=== PATIENT | male | born 1980 | race Caucasian/White ===

== ENCOUNTER 2024-10-17 18:38 | Emergency (ER) | payer MEDICARE, MEDICAID, SELFPAY ==
--- NOTE | ~2024-10-17 | CT_ITS ---
CLINICAL INDICATION: Hematuria and suprapubic pain. History of NF1. COMPARISON: None. TECHNIQUE: Multiple contiguous axial images of the abdomen and pelvis were performed without the admi nistration of intravenous contrast The dose-length product (DLP) was 198.93 mGy-cm. Automated exposure control and iterative reconstruction technique were employed. FINDINGS/OBSERVATIONS: Visualized lower thorax: Severe panlobular emphysematous disease is detected. Bibasilar bullous formation is noted, left greater than right. Elevation of the left hemidiaphragm with adjacent compressive consolidation and varicose bronchiectas is, likely chronic. The heart is of normal size, without pericardial effusion. Liver: The liver demonstrates homogeneous attenuation and is not enlarged. Gallbladder and biliary system: The gallbladder is only minimally distended, and otherwise unremarkable. Pancreas: Limited evaluation of the pancreas secondary to the lack of intravenous contrast. Spleen: The spleen demonstrates homogeneous attenuation and is not enlarged. Kidneys: The bilateral kidneys are unremarkable, without hydronephrosis or renal calculi. Adrenal glands: Unremarkable. Gastrointestinal tract: Trace fecal stasis within the colon. Appendix: The air-filled appendix is of normal caliber (axial series, images 111 through 140) Vasculature: Evidence of endovascular venous reconstruction. Lymph nodes: Limited evaluation without intravenous contrast. Pelvic structures: The bladder is only minimally distended, and otherwise unremarkable. Heterogeneous attenuation within the base of the bladder, as well as the prostate gland, consistent w [facility] patient's history. The prostate gland is not enlarged. Body wall and musculoskeletal: No significant degenerative disease within the lower thoracic or lumbosacral spine. IMPRESSION: No obstructive uropathy. Heterogeneous attenuation within the base of the bladder as well as within the prostate gland along t he expected course of the prostatic urethra, consistent with patient's history. Reviewed, dictated and finalized at location A. IMPRESSION: No obstructive uropathy. Heterogeneous attenuation within the base of the bladder as well as within the prostate gland along the expected course of the prostatic urethra, consistent w [facility] patient's history.
--- OUTSIDE RECORDS SUMMARY | 2024-10-17 18:39 | XMS_ITS | Clinical Summary ---
Author Organization [facility] Address [address] [place] [address] Phone Care Team Providers Care Mortgage Lender Name Role Phone Unavailable Primary Care Provider Unavailabl e Allergies Active Allergy Reactions Criticality Noted Date Comments Amoxicillin Rash 11/07/2016 Medications cyclobenzaprine (FLEXERIL) 10 MG Tablet 10/28/2016 Active traZODone (DESYREL) 50 MG Tablet TK 2 TS PO QD HS 0 10/28/2016 Active amLODIPine (NORVASC) 2.5 MG Tablet 1 Tab daily. 90 Tab 11/07/2016 Active metoprolol tartrate (LOPRESSOR) 50 MG Tablet 1 Tab 2 times daily. 180 Tab 11/07/2016 Active enoxaparin (LOVENOX) 80 MG/0.8ML Solution every 12 hours. 11/07/2016 Active Active Problems Problem Noted Date Diagnosed Date Hypertension Neurofibromatosis, peripheral, NF1 Family History Medical History Relation Name Comments No Known Problems Father No Known Problems Mother Relation Name Status Comments Father Alive Mother Alive Social History Tobacco Use Types Packs/Day Years Used Date Smoking Tobacco: Former Smokeless Tobacco: Never Tobacco Cessation:Counseling Given: No Alcohol Use Standard Drinks/Week Comments No 0 (1 standard drink = 0.6 oz pur e alcohol) Sexually Active Control Partners Comments Never Sex and Gender Information Value Date Recorded Sex Assigned at Not on file Legal Sex Male 9:49 PM CDT Gender Identity Not on file Sexual Orientation Not on file Last Filed Vital Signs Vital Sign Reading Time Taken Comments Blood Pressure 124/70 11/07/2016 3:19 PM CDT Pulse 103 11/07/2016 3:19 PM CDT Temperature 36.7 C (98 F) 11/07/2016 3:19 PM CDT Respiratory Rate 20 11/07/2016 3:19 PM CDT Oxygen Saturation 96% 11/07/2016 3:19 PM CDT Inhaled Oxygen Concentration - - Weight 69.9 kg (154 lb 3.2 oz) 11/07/2016 3:19 P M CDT Height 179.1 cm (5' 10.5) 11/07/2016 3:19 PM CD T Body Mass Index 21.81 11/07/2016 3:19 PM CDT Plan of Treatment Health Maintenance Due Date Last Done Comments Hepatitis C Virus (HCV) Screening 1981 TdaP Immunization 1981 Hepatitis B Immunization (1 of 3 - 19+ 3-dose series) 2000 Influenza Immunization (#1) 2023 SARS-COV-2 Immunization ( season) 2023 Respiratory Syncytial Virus (RSV) Immunization (Adult) (1 - 1-dose 75+ series) 2056 Meningococcal Immunization (ACWY) Aged Out No longer eligible based on patient's age to complete this topic Pneumococcal Immunization Combined Aged Out No longer eligible based on patient's age to complete this topic Rotavirus Immunization Aged Out No lo nger eligible based on patient's age to complete this topic Care Teams Mortgage Lender Relationship Specialty Start Date End Date Linda Bragg MD Consulting Physician Oncology 11/07/16
[2024-10-17 18:40] VITALS: BP 121/79; PULSE 96; RESP 20; TEMP 36.6; O2SAT 95
--- OUTSIDE RECORDS SUMMARY | 2024-10-17 18:40 | XMS_ITS | Data Portability ---
Author Organization [facility] Address [address] [place] [address] Assessment No assessment recorded. Plan of Treatment Reminders Order Date Submit Date Provider Last Modified By Organization Details Last Modified Time Details Appointments None recorded. Lab None recorded. Referral None recorded. Procedures None recorded. Surgeries None recorded. Imaging None recorded. Medication Orders cyclobenza ching 10 mg tablet 2016 017 [id number], [address] , [place], [place], [id number], 7 12:02:56 trazodone 50 mg tablet 2016 017 [facility] #[id number], [address] , [place], [place], [id number], 7 12:03:51 Patient TargetsNo targets recorded. Patient Instructions Encounter Date Encounter Id Patient Instructions Last Modified By Organization Details Last Modified Time 10/28/2016 [id number] A healthy lifestyle: care instructions [email or web address] Not available 10/28/2016 12:23:11 Reason for Referral None Reported. Problems Name Problem SNOMED Code Status Onset Date Resolution Date Notes Provider Name and Address Organization Details Recorded Time Pulmonary embolism 79734113 Active 017 SANDEEP Oliveros, [place] - [facility] 7 11:35:54 Problem Notes None recorded. Medical Equipment None Reported. Allergies Allergen ID Allergen Name Allergen Category Reaction Reaction Severity Criticality Documentation Date Start Date Code Code System Note Provider Name and Address Organization Details Recorded Time 49315 amoxicill in medicatio n Not available Not available Not available 10/28/2016 723 [facility] Geeta English CMA null, [place] - [facility] 7 11:35:39 Medications Name Sig Start Date Stop Date Status Note LastModified by Organization Details LastModified Time cyclobenzapr ine 10 mg tablet Take 1 tablet every day by oral route as needed for 30 days. active Not Available Not Available No t Available nystatin 100,000 unit/mL oral suspension active Not Available Not Available N ot Available trazodone 50 mg tablet TAKE 2 TABLETS BY MOUTH EVERY DAY AT BEDTIME 2017 active Not Available Not Available Not Avai lable Lidocaine Viscous 2 % mucosal solution active Not Available Not Available Not Available amlodipine 2.5 mg tablet 1 tablet daily active Not Available Not Available No t Available metoprolol tartrate 50 mg tablet 1 tablet BID active Not Available Not Available No t Available oxycodone 5 mg tablet 10/28 completed Not Available Not Available Not Available enoxaparin 60 mg/0.6 mL subcutaneous syringe 10/28 completed Not Available Not Available Not Available enoxaparin 80 mg/0.8 mL subcutaneous syringe BID active Not Available Not Available Not Available enoxaparin 120 mg/0.8 mL subcutaneous syringe 10/28 completed Not Available Not Available Not Available Senexon-S 8.6 mg-50 mg tablet 10/28 completed Not Available Not Available Not Available Vitals Date Recorded Body height Body mass index (BMI) Body weight Oxygen saturation Oxygen saturation in Arterial blood by Pulse oximetry Heart rate Body temperature Systolic blood pressure Diastolic blood pressure Provider Name and Address Organization Details Last Updated DateTime 7 4693.92 cm 0 kg/m2 2551.46 g 96 % 96 % 119 /min 98.9 [degF] 124 mm[Hg] 86 mm[Hg] Geeta English CMA [place] - [facility] 7 11:40:16 Social History Question Answer Notes LastModified by Organizat ion Details LastModified Time Tobacco Smoking Status Former Smoker still vapes SANDEEP Oliveros [place] - [facility] 10/28/2016 11:37:06 Do You Have An Advance Directive? No Information not available 10/28/2016 What Is Your Level Of Caffeine Consumption? Heavy Information not available 10/28/2016 How Much Tobacco Do You Chew? None Information not available 10/28/2016 What Type Of Diet Are You Following? REGULAR Information not available 10/28/2016 Which Illicit Or Recreational Drugs Have You Used? None Information not available 10/28/2016 Hard Of Hearing Or Deaf In One Or Both Ears? No Information not available 10/28/2016 Legally Blind In One Or Both Eyes? No Information no t available 10/28/2016 Are You Sexually Active? No Information not available 10/28/2016 How Much Tobacco Do You Smoke? 1 PPD Information not available 10/28/2016 General Stress Level Low Information not available 10/28/2016 Do You Use Sunscreen Routinely? No Information not available 10/28/2016 How Many Years Have You Smoked Tobacco? 10 Information not available 10/28/2016 Sex: Unknown Functional Status Question Answer Note LastModified by Organizat ion Details LastModified Time What is your level of alcohol consumption? None Information not available 10/28/2016 Are you currently employed? No Information not available 10/28/2016 What is your exercise level? Occasional Information not available 10/28/2016 Mental Status None recorded. Family History Nothing Reported. Medical History Condition Response Coronary Artery Disease N Other N High Blood Pressure Y Atrial Fibrillation N Kidney or Bladder Problems N Thyroid Problems N GI Problems N Depression N COPD N Blood Clots Y Skin Problems N Anemia N Heart Attack ([place]) N Anxiety Disorder N Diabetes N Muscle, Joint, or Bone Problems N Seizures/Epilepsy N Acid Reflux (GERD) N Cancer Y Stroke N Asthma N Allergies N High Cholesterol N Hepatitis N Liver Disease N Headaches N Heart Failure N Osteoporosis N Past Encounters Encounter ID Performer Location Encounter Start Date Encounter Closed Date Diagnosis/Indication Diagnosis SNOMED-CT Code Diagnosis ICD10 Code Diagnosis Note [id number] ANA Evangelista NP [facility] [address] [place] [address] 10/28/2016 11:27:10 10/28/2016 12:20:12 Neck pain 01188653 M54.2 Start flexeril as directed. Tylenol, rest, ice. F/u if symptoms persist/wo rsen Insomnia 303675537 G47.0 0 Increase trazodone to 100 mg po HS. F/u 1 month or sooner if needed. Health Concerns Section Related Observation LastModified by Organization Detai ls LastModified Time None Recorded Concern Status LastModified by Organization Details LastModified Time None Recorded Advance Directives Directive N: Payers Insurance Date Sequence Insurance Name Policy Number Policy Alejandro Covered Member ID Alejandro Member ID Guarantor Name 01/24/2017 1 [facility] (MEDICAID HMO) [id number] Levon Wang [id number] Levon Wang Notes Date Note Type Note Provider Name and Address Organization Details Recorded Time 10/28/2016 text/html Patient presents today to establish care. States he was in the hospital recently for a blood clot in his lungs. He has a hx of blood clotting disorder and was prescribed lovenox. He ran out of the lovenox and did not take it. That is when the blood clot developed. He was seen at [facility] when the blood clot occurred. He is back on his lovenox that is being managed by [facility] specialist. He is not to go off of it according to the patient. He is feeling very good today. Denies CP, SOB. He has an implanted port in his right upper chest wall. 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 Cancerous area was surgically removed- scars visible. He reports this area is always very tight and painful. States he has taken muscle relaxers int he past that help with this pain. He would like ar refill today. He currently takes trazadone for sleeping. Reports the 50 mg is not helping as much any more, wondering if he can take 100 mg po HS. ANA Evangelista NP Attn: Accounting,[address] [facility], [place], [address], [facility] 11/04/2016 14:42:31
--- OUTSIDE RECORDS SUMMARY | 2024-10-17 19:09 | XMS_ITS | Clinical Summary ---
Author Organization [facility] field Address [address] [place] [address] Phone Care Team Providers Care Mercerizer Name Role Phone Unavailable Primary Care Provider Unavailabl e Encounters Date Type Department Care Team Description 10/01/2024 External Device Data [facility] ABSTRACTION Provider, Abstract 09/03/2024 External Device Data [facility] ABSTRACTION Provider, Abstract 07/30/2024 External Device Data [facility] ABSTRACTION Provider, Abstract from Last 3 Months Social History Tobacco Use Types Packs/Day Years Used Date Smoking Tobacco: Never Assessed Sex and Gender Information Value Date Recorded Sex Assigned at Not on file 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
--- OUTSIDE RECORDS SUMMARY | 2024-10-17 19:09 | XMS_ITS | Clinical Summary ---
Author Organization [facility] Address [address] [place] [address] Phone Care Team Providers Care Preschool Teacher Name Role Phone Unavailable Primary Care Provider [...] age to complete this topic Care Teams Preschool Teacher Relationship Specialty Start Date End Date Linda Bragg MD Consulting Physician Oncology 11/07/16
--- OUTSIDE RECORDS SUMMARY | 2024-10-17 19:09 | XMS_ITS | Patient Health Record ---
Author Organization [facility] Address [address], [place] [id number] Care Team Providers Care Radio Electronics Officer Name Role Phone Sandra Gonsalez Primary Care Provider Blessing Betancourt Unavailable [phone] Gena Hou Unavailable [phone] Antwan Escalante Unavailable [phone] Allergies Allergen (clinical drug ingredient) Drug/Non Drug Allergy documented on EMR Reaction Allergy Type Onset Date Status amoxicillin Amoxicillin rash Drug Allergy Act nicho Substance with sulfonamide structure and antibacterial mechanism of action (substance) Sulfa Antibiotics vomiting Drug Allergy Active Results Component Value Reference Range Notes Hemoglobin A1c *[facility]* Reviewed date:12/22/2023 11:20:11 AM Interpretation:5.1 Performing Lab: Notes/Report: 5.1 HEMOGLOBIN A1C 5.1 TSH+Free T4 *[facility]* Reviewed date:12/22/2023 11:20:11 AM Interpretation: Performing Lab:[facility] [address], Phone - [phone], Director - Harsha Notes/Report: TSH 2.480 0.450-4.500 uIU/mL T4,Free(Direct) 1.33 0.82-1.77 ng/dL Vitamin D, 25-Hydroxy *[facility]* Reviewed date:12/22/2023 11:20:11 AM Interpretation: Performing Lab:[facility] [address], Phone - [phone], Director - Harsha Notes/Report: Vitamin D, 25-Hydroxy 19.6 30.0-100.0 ng/mL Vitamin D deficiency has been defined by the [place] [employer] and an Endocrine Society practice guideline as a level of serum 25-OH vitamin D less than 20 ng/mL (1,2). The Endocrine Society went on to further define vitamin D insufficiency as a level between 21 and 29 ng/mL (2). 1. IOM ([place] [employer]). 2010. Dietary reference intakes for calcium and D. [place]: The National Academies Press. 2. Zoey MF, Nafisa AGGARWAL, Lissett NEAL, et al. Evaluation, treatment, and prevention of vitamin D deficiency: an Endocrine Society clinical practice guideline. JCEM. 2010; 96(7):1911-30. CBC With Differential/Platel et Reviewed date:12/22/2023 11:20:11 AM Interpretation: Performing Lab:[facility], Notes/Report: Comp. Metabolic Panel (14) Reviewed date:12/22/2023 11:20:11 AM Interpretation: Performing Lab:[facility], Notes/Report: CBC With Differential/Platel et Reviewed date:08/15/2024 08:17:12 AM Interpretation: Performing Lab:[facility], Notes/Report: Comp. Metabolic Panel (14) Reviewed date:08/15/2024 08:17:12 AM Interpretation: Performing Lab:[facility], Notes/Report: X ray : Chest with 2 views Reviewed date:09/06/2024 10:18:40 AM Interpretation: Performing Lab: Notes/Report: Influenza A/B *[facility]* Reviewed date:05/08/2024 12:59:13 PM Interpretation:Negative Performing Lab: Notes/Report: Negative INFLUENZA A Negative INFLUENZA B Negative COVID-19 rapid, Ag Reviewed date:05/08/2024 12:59:13 PM Interpretation:Negative Performing Lab: Notes/Report: Negative Covid-19 Negative Negative - X ray : Chest (PA lateral) Reviewed date:05/13/2024 11:00:24 AM Interpretation:normal Performing Lab: Notes/Report: normal CBC With Differential/Platel et Reviewed date:09/06/2024 10:18:40 AM Interpretation: Performing Lab:[facility], Notes/Report: Reason For Referral No Information Medications Medication SIG (Take, Route, Frequency, Duration) Notes Start Date End Date Status OLANZapine 15 MG 1 tablet Orally Once a day for 30 days renewal - fill when next due 07/01/2024 Active Alendronate Sodium 70 MG TAKE 1 TABLET BY MOUTH ONCE A WEEK 30 MINUTES BEFORE FIRST FOOD, BEVERAGE, OR MEDICINE OF THE DAY WITH PLAIN WATER for 28 Active Clopidogrel Bisulfate 75 MG 1 tablet Orally Once a day for 90 days Active Xarelto 20 MG 1 tablet with food Orally Once a day for 90 days Active Sildenafil Citrate 50 MG 1 tablet as needed Orally Once a day for 30 days 08/31/2023 Active Advair Diskus 500-50 MCG/DOSE 1 puff Inhalation twice daily Active Spiriva Respimat 2.5 MCG/ACT 2 puffs Inhalation Once a day Active Ramelteon 8 MG 1 tablet at bedtime as needed Orally Once a day for 30 days 10/04/2024 Active ProAir HFA 108 (90 Base) MCG/ACT 1 puff as needed Inhalation every 4 hrs 04/27/2022 Active Vraylar 1.5 MG 1 capsule in the evening with dinner Orally Once a day for 30 days renewal - fill when next due Active Breztri Aerosphere 160-9-4.8 MCG/ACT 2 puffs Inhalation Twice a day 09/09/2022 Not-Taking traZODone HCl 100 MG 1 tablet at bedtime Orally Once a day for 30 days 10/04/2024 Active Metoprolol Succinate ER 50 MG 1 tablet Orally Once a day for 30 days 08/07/2024 Active Social History Tobacco Use: Social History Observation Description Date Details (start date - stop date) Former Smoker 05/01/2002 - 12/30/2022 Sex Assigned At : Social History Observation Description Sex Assigned At Male Tobacco Use/Smoking Question Answer Notes Are you a former smoker How long has it been since you last smoked? 3-6 months Alcohol Screen (Audit-C) Question Answer Notes Did you have a drink containing alcohol in the p ast year? No Points 0 Interpretation Negative Sexual History Question Answer Notes Had sex in the past 12 months (vaginal, oral, or anal)? No Have you ever had a Sexually transmitted disease ? No Tobacco use other than smoking: Question Answer Notes Are you an other tobacco user? No SBIRT 2014 Question Answer Notes Patient refused/declined SBIRT screening at this time? No In the past 3 months, how of ten do you have a drink containing alcohol? Never In the past 12 months, did y ou smoke pot, use another street drug, or use a prescription painkiller, stimulant, or sedative for a non-medical reason? No The cumulative score is 0 A referral is not needed Tobacco Control (Standard) Question Answer Notes Tobacco use: Former smoker When did you start smoking? 05/01/2002 When did you stop smoking? 12/30/2022 How long has it been since you last smoked? 6-12 months Section Notes: trying to quit nicotine trying to quit nicotine. Stew t tobacco a few days ago. Quit smoking a little less t neal a month ago Quit smoking a little less t neal a month ago Quit smoking between 1-3 mon ths ago Pt smoked a pack a day for 2 0 years Pt smoked a pack a day for 2 0 years Pt smoked a pack a day for 2 0 years Pt smoked a pack a day for 2 0 years Pt smoked a pack a day for 2 0 years Pt smoked a pack a day for 2 0 years Pt smoked a pack a day for 2 0 years Pt smoked a pack a day for 2 0 years Pt smoked a pack a day for 2 0 years Pt smoked a pack a day for 2 0 years Pt smoked a pack a day for 2 0 years Pt smoked a pack a day for 2 0 years Pt smoked a pack a day for 2 0 years Pt smoked a pack a day for 2 0 years Problems Problem Type SNOMED Code ICD Code Onset Dates Problem Status W/U Status Risk Notes Problem Atelectasis (26351131) Atelectasis (J98.11) Active confirmed Problem Neurofibromatosis, 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) Neurofibromatos is, type 1 (Q85.01) Active confirmed Problem Insomnia (152810260) Insomnia (G47.00) Active confirmed Problem Alcohol abuse (31436304) Alcohol abuse (F10.10) Active confirmed Problem Osteoporosis (72328401) Osteoporosis (M81.0) Active confirmed Problem Acute exacerbation of chronic obstructive airways disease (893800063) COPD exacerbation (J44.1) Active confirmed Problem Bipolar disorder (95816383) Bipolar 1 disorder, depressed (F31.9) Active confirmed Problem 59943192 DAV (generalized anxiety disorder) (F41.1) Active confirmed Problem Peripheral vascular disease (273008711) Peripheral vascular disease (I73.9) Active confirmed Problem Erectile dysfunction (disorder) (192570550) ED (erectile dysfunction) (N52.9) Active confirmed Problem Essential hypertension (15781494) Essential hypertension (I10) Active confirmed Problem Peripheral artery disease (458092799) Peripheral artery disease (I73.9) Active confirmed Problem 42071437 Chronic obstructive pulmonary disease, unspecified COPD type (J44.9) Active confirmed Problem Cancer (131226022) Cancer (C80.1) Active confir med Problem Vitamin D deficiency (64847203) Low vitamin D level (E55.9) Active confirmed Problem Increased hemoglobin (800265555) Elevated hemoglobin (D58.2) Active confirmed Problem Emphysema (97333881) Emphysema/COPD (J43.9) Active confirmed Problem Cardiac implant in situ (543924209) Status post angioplasty with stent (Z95.9) Active confirmed Problem History of cancer (805184506) History of cancer (Z85.9) Active confirmed Problem Severe depressed bipolar I disorder without psychotic features (96824233) Bipolar disorder with severe depression (F31.4) Active confirmed Problem 093058062 Alcohol use disorder, moderate, dependence (F10.20) Active confirmed Problem 987811491238461 Chronic mood disorder (F34.9) Active confirmed Problem 1496591052488 Cannabis use disorder, mild, in early remission (F12.11) Active confirmed Vital Signs Heart Rate 110 /min 10/04/2024 Temperature 97.5 degrees Fahrenheit 10/04/2024 Respiratory Rate 18 /min 05/08/2024 Oximetry 95 % 10/04/2024 Blood pressure diastolic 70 mm Hg 10/04/2024 Weight-kg 67.68 kg 10/04/2024 Height 69 in 10/04/2024 Blood pressure systolic 128 mm Hg 10/04/2024 Weight 149.2 lbs 10/04/2024 BMI 22.03 kg/m2 10/04/2024 Procedures Procedure Date Ordered Date Performed Result Body Sit e EKG 08/07/2024 N/A Encounters Encounter Location Date Provider Diagnosis [facility] [address] [place] [id number] 11/06/2023 Sandra Sykes [address] [place] [id number] 11/21/2023 Antwan Escalante Chronic obstructive pulmonary disease, unspecified COPD type J44.[address] [id number] 12/01/2023 Sandraandria Briscoeo [address] [id number] 12/06/2023 Sandraandria Briscoeo Neurofibromatosis, type 1 Q85.01 ; Chronic obstructive pulmonary disease, unspecified COPD type J44.9 ; Osteoporosis M81.0 ; Peripheral vascular disease I73.9 ; Bipolar 1 disorder, depressed F31.9 ; Essential hypertension I10 and Alcohol abuse F10.10 [facility] [address], [place] [id number] 12/07/2023 Sandraandria Sykes Neurofibromatosis, type 1 Q85.01 [facility] [address] [place], [place] [id number] 01/15/2024 Sandraandria Castillo Onel [address] [id number] 01/19/2024 Blessing Betancourt Bipolar 1 disorder, depressed F31.9 ; DAV (generalized anxiety disorder) F41.1 and Insomnia G47.[address] [id number] 01/30/2024 Gena Hou [address] [id number] 03/01/2024 Sandra Radhelga Onel [address] [id number] 03/14/2024 Sandra Jonathan Briscoeo Low vitamin D level E55.[address] [id number] 04/09/2024 Sandra Radhelga Onel [address] [id number] 05/08/2024 Sandra Jonahtan Briscoeo Cough R05.9 and COPD exacerbation J44.[address] [id number] 05/14/2024 Sandra Jonathan Leononso [address] [id number] 05/31/2024 Blessing Betancourt DAV (generalized anxiety disorder) F41.1 ; Bipolar disorder with severe depression F31.4 ; Insomnia G47.00 ; Chronic mood disorder F34.9 and Alcohol abuse F10.[address] [id number] 06/04/2024 Sandra Sykes [address] [id number] 06/07/2024 Sandra Sykes Chronic obstructive pulmonary disease, unspecified COPD type J44.9 ; Osteoporosis M81.0 ; Peripheral vascular disease I73.9 ; Neurofibromatosis, type 1 Q85.01 and Bipolar 1 disorder, depressed F31.[address] [id number] 07/01/2024 Blessing Betancourt Insomnia G47.00 ; Bipolar disorder with severe depression F31.4 ; DAV (generalized anxiety disorder) F41.1 and Chronic mood disorder F34.[address] [id number] 07/04/2024 Sandra Sykes Alcohol abuse F10.10 ; Alcohol use disorder, moderate, dependence F10.20 ; Cannabis use disorder, mild, in early remission F12.11 ; Chronic mood disorder F34.9 ; Bipolar disorder with severe depression F31.4 ; Bipolar 1 disorder, depressed F31.9 ; DAV (generalized anxiety disorder) F41.1 ; Insomnia G47.00 ; Cancer C80.1 ; Essential hypertension I10 ; History of cancer Z85.9 ; Neurofibromatosis, type 1 Q85.01 ; Atelectasis J98.11 ; Peripheral artery disease I73.9 ; Status post angioplasty with stent Z95.9 ; Peripheral vascular disease I73.9 ; Emphysema/COPD J43.9 ; Osteoporosis M81.0 ; ED (erectile dysfunction) N52.9 ; Chronic obstructive pulmonary disease, unspecified COPD type J44.9 ; Low vitamin D level E55.9 and COPD exacerbation J44.[address] [id number] 07/31/2024 Sandra Sykes [address] [id number] 08/07/2024 Sandra Rademan Onel Sinus tachycardia R00.0 [place] [address], [place] [id number] 08/08/2024 Sandra Rademan Onel Sinus tachycardia R00.[address] [id number] 08/14/2024 Sandra Rademan Onel Essential hypertension I10 ; Elevated hemoglobin D58.2 and Emphysema/COPD J43.9 [facility] [address], [place] [id number] 08/15/2024 Sandra Rademan Onel Elevated hemoglobin D58.[address] [id number] 10/01/2024 Sandra Rademan Onel [address] [id number] 10/04/2024 Blessing Betancourt DAV (generalized anxiety disorder) F41.1 ; Bipolar disorder with severe depression F31.4 ; Chronic mood disorder F34.9 ; Alcohol use disorder, moderate, dependence F10.20 ; Cannabis use disorder, mild, in early remission F12.11 and Insomnia G47.[address] [id number] 10/25/2023 Sandra Jonathan Onel Bipolar disorder with severe depression F31.[address] [id number] 12/08/2023 Sandra Rademan Onel [address] [id number] 12/21/2023 Blessing Betancourt Bipolar disorder wit h severe depression F31.[address] [id number] 01/18/2024 Sandra Radhelga Onel Bipolar disorder with severe depression F31.[address] [id number] 02/08/2024 Blessing Betancourt DAV (generalized anxiety disorder) F41.1 and Insomnia G47.[address] [id number] 05/07/2024 Blessing Betancourt DAV (generalized anxiety disorder) F41.1 and Insomnia G47.00 [facility] [address] [place], [place] [id number] 08/08/2024 Sandra Briscoeo Cough R05.9 [place] [address] [address] [place] [id number] 09/05/2024 Sandra Briscoeo Elevated hematocrit R71.8 Assessments Encounter Date Diagnosis (ICD Code) Assessment Notes Treatment Notes Treatment Clinical Notes Section Notes 10/25/2023 Bipolar disorder with severe depression (ICD-10 - F31.4) 11/21/2023 Chronic obstructive pulmonary disease, unspecified COPD type (ICD-10 - J44.9) Patient overall is doing a lot better. Patient has no acute complaints. Patient states his breathing is better 12/06/2023 Neurofibromatosi s, type 1 (ICD-10 - Q85.01) Continue to f/u with Neurology 12/07/2023 Neurofibromatosi s, type 1 (ICD-10 - Q85.01) 12/21/2023 Bipolar disorder with severe depression (ICD-10 - F31.4) 01/18/2024 Bipolar disorder with severe depression (ICD-10 - F31.4) 01/19/2024 Bipolar 1 disorder, depressed (ICD-10 - F31.9) 05/07/2024 DAV (generalized anxiety disorder) (ICD-10 - F41.1) 05/08/2024 COPD exacerbation (ICD-10 - J44.1) Start Prednisone and Doxyxycline, medication instructions provided. Continue inhalers as prescribed. Recommend rest, fluids and otc symptom relievers. Call with any new or worsening symptoms. 05/08/2024 Cough (ICD-10 - R05.9) 05/31/2024 DAV (generalized anxiety disorder) (ICD-10 - F41.1) 05/31/2024 Bipolar disorder with severe depression (ICD-10 - F31.4) 02/08/2024 DAV (generalized anxiety disorder) (ICD-10 - F41.1) 03/14/2024 Low vitamin D level (ICD-10 - E55.9) 06/07/2024 Chronic obstructive pulmonary disease, unspecified COPD type (ICD-10 - J44.9) Continue to f/u with Pulmonology. 07/01/2024 Insomnia (ICD-10 - G47.00) 07/01/2024 Bipolar disorder with severe depression (ICD-10 - F31.4) 07/04/2024 Alcohol abuse (ICD-10 - F10.10) 08/07/2024 Sinus tachycardia (ICD-10 - R00.0) EKG shows sinus tachycardia with short IA interval, moderate ST depression. Pt is asymptomatic at this time. Ventricular rate on EKG is 122. Pt was drinking an energy during appt and advised to avoid energy drinks and caffeine. Pt noted to be slightly tachycardic on previous visits, will start Metoprolol 25 mg daily. Medication instructions provided. Follow up in 1 week. Pt does monitor his heart rate at home, discussed if it remains elevated or he becomes symptomatic to seek emergency care. 08/08/2024 Sinus tachycardia (ICD-10 - R00.0) 08/08/2024 Cough (ICD-10 - R05.9) 08/14/2024 Essential hypertension (ICD-10 - I10) 08/14/2024 Elevated hemoglobin (ICD-10 - D58.2) Repeat CBC 08/15/2024 Elevated hemoglobin (ICD-10 - D58.2) 09/05/2024 Elevated hematocrit (ICD-10 - R71.8) 10/04/2024 DAV (generalized anxiety disorder) (ICD-10 - F41.1) 10/04/2024 Bipolar disorder with severe depression (ICD-10 - F31.4) 08/14/2024 Emphysema/COPD (ICD-10 - J43.9) Following with Pulmonology 07/04/2024 Alcohol use disorder, moderate, dependence (ICD-10 - F10.20) 07/01/2024 DAV (generalized anxiety disorder) (ICD-10 - F41.1) 05/07/2024 Insomnia (ICD-10 - G47.00) 06/07/2024 Osteoporosis (ICD-10 - M81.0) Will plan to repeat dexa scan at his annual physical in 6 months 05/31/2024 Insomnia (ICD-10 - G47.00) 01/19/2024 DAV (generalized anxiety disorder) (ICD-10 - F41.1) 02/08/2024 Insomnia (ICD-10 - G47.00) 12/06/2023 Chronic obstructive pulmonary disease, unspecified COPD type (ICD-10 - J44.9) Continue to f/u with Pulmonology. 12/06/2023 Osteoporosis (ICD-10 - M81.0) Recommend weightbearing activity, smoking cessation if currently smoking, and calcium with vitamin D daily. Pt recently started Alendronate for osteoporosis on recent dexa scan. 01/19/2024 Insomnia (ICD-10 - G47.00) 05/31/2024 Chronic mood disorder (ICD-10 - F34.9) 07/01/2024 Chronic mood disorder (ICD-10 - F34.9) 06/07/2024 Peripheral vascular disease (ICD-10 - I73.9) Continue to f/u with vascular surgery 07/04/2024 Cannabis use disorder, mild, in early remission (ICD-10 - F12.11) 10/04/2024 Chronic mood disorder (ICD-10 - F34.9) 10/04/2024 Alcohol use disorder, moderate, dependence (ICD-10 - F10.20) 07/04/2024 Chronic mood disorder (ICD-10 - F34.9) 06/07/2024 Neurofibromatosi s, type 1 (ICD-10 - Q85.01) Pt is established with Neurology 05/31/2024 Alcohol abuse (ICD-10 - F10.10) 12/06/2023 Peripheral vascular disease (ICD-10 - I73.9) Continue to f/u with Vascular 12/06/2023 Bipolar 1 disorder, depressed (ICD-10 - F31.9) Continue to f/u with Dr. Betancourt 06/07/2024 Bipolar 1 disorder, depressed (ICD-10 - F31.9) Continue to f/u with behavioral health. 07/04/2024 Bipolar disorder with severe depression (ICD-10 - F31.4) 10/04/2024 Cannabis use disorder, mild, in early remission (ICD-10 - F12.11) 10/04/2024 Insomnia (ICD-10 - G47.00) 07/04/2024 Bipolar 1 disorder, depressed (ICD-10 - F31.9) 12/06/2023 Essential hypertension (ICD-10 - I10) BP stable without medication at this time. 12/06/2023 Alcohol abuse (ICD-10 - F10.10) Discussed risks, short and long-term effects associated with alcohol abuse. Strongly encouraged patient to decrease alcohol consumption with goal of complete alcohol cessation. Discussed resources of alcohol cessation including mental health counseling, local AA chapters. 07/04/2024 DAV (generalized anxiety disorder) (ICD-10 - F41.1) 07/04/2024 Insomnia (ICD-10 - G47.00) 07/04/2024 Cancer (ICD-10 - C80.1) 07/04/2024 Essential hypertension (ICD-10 - I10) 07/04/2024 History of cancer (ICD-10 - Z85.9) 07/04/2024 Neurofibromatosi s, type 1 (ICD-10 - Q85.01) 07/04/2024 Atelectasis (ICD-10 - J98.11) 07/04/2024 Peripheral artery disease (ICD-10 - I73.9) 07/04/2024 Status post angioplasty with stent (ICD-10 - Z95.9) 07/04/2024 Peripheral vascular disease (ICD-10 - I73.9) 07/04/2024 Emphysema/COPD (ICD-10 - J43.9) 07/04/2024 Osteoporosis (ICD-10 - M81.0) 07/04/2024 ED (erectile dysfunction) (ICD-10 - N52.9) 07/04/2024 Chronic obstructive pulmonary disease, unspecified COPD type (ICD-10 - J44.9) 07/04/2024 Low vitamin D level (ICD-10 - E55.9) 07/04/2024 COPD exacerbation (ICD-10 - J44.1) 01/19/2024 Other dx: Bipolar d/o, depression; DAV, InsomniaReviewed VS; suicide scale: neg MDQ, depression, ADHD, AIMS - reviewed Education re Diagnosis, prognosis, use of medications (purpose and side effects of each discussed with patient) Meds: purpose and side effects explained (as stated above) Start: Adjust: Continue: same meds - vraylar 1.5 mg q pm, zyprexa 10 mg q hs, traz 200 mg q hs Reviewed/ordered labs: per routine annual check Discussed stressors and therapies to work on coping skills: Pt managing stress ok, has pets and his dad to help with his progress Focus on ADL's: sleep hygiene, improving diet, incorporating appropriate exercise, as tolerated Maintain a Safe and structured environment, including restriction from dangerous items and behaviors - incorporation of safety plan, if indicated - appears low risk for self-harm at this time. Coordination of care - to obtain outside records, as necessary, for continued care of medical conditions Prognosis: good Billing: EST [id number] 3 mo 05/31/2024 Other Dx: Bipolar 1, depression; DAV, insomniaReviewed VS; suicide scale: neg MDQ, depression, ADHD, AIMS - reviewed Education re Diagnosis, prognosis, use of medications (purpose and side effects of each discussed with patient) Meds: purpose and side effects explained (as stated above) Start: Adjust:increase traz 300 mg q hs Continue: vraylar 1.5 mg q pm, zyprexa 10 mg q hs Reviewed/ordered labs: per routine annual check Discussed stressors and therapies to work on coping skills:pt declines therapy Focus on ADL's: sleep hygiene, improving diet, incorporating appropriate exercise, as tolerated Maintain a Safe and structured environment, including restriction from dangerous items and behaviors - incorporation of safety plan, if indicated - appears low risk for self-harm at this time. Coordination of care - to obtain outside records, as necessary, for continued care of medical conditions Prognosis: good Billing: EST [id number] 6 wks 07/01/2024 Other Dx:Bipolar 1, depression; DAV; InsomniaReviewed VS; suicide scale: neg MDQ, depression, ADHD, AIMS - reviewed Education re Diagnosis, prognosis, use of medications (purpose and side effects of each discussed with patient) Meds: purpose and side effects explained (as stated above) Start: Adjust: increase zyprexa 15 mg q pm Continue: vraylar 1.5 mg q pm; traz 300 mg q hs Reviewed/ordered labs: per routine annual check Discussed stressors and therapies to work on coping skills:discussed stressor, coping skills Focus on ADL's: sleep hygiene, improving diet, incorporating appropriate exercise, as tolerated Maintain a Safe and structured environment, including restriction from dangerous items and behaviors - incorporation of safety plan, if indicated - appears low risk for self-harm at this time. Coordination of care - to obtain outside records, as necessary, for continued care of medical conditions Prognosis: good Billing: EST [id number] 2 mo 10/04/2024 Other Dx: Bipolar 1 depression; DAV, Insomnia, severe, chronicReviewed VS; suicide scale neg MDQ, depression, ADHD, AIMS - reviewed Education re Diagnosis, prognosis, use of medications (purpose and side effects of each discussed with patient) Meds: purpose and side effects explained (as stated above) Start: ramelteon 8 mg q hs, while lowering the traz gradually to 100 mg Adjust: Continue: vraylar 1.5 mg q pm, zyprexa 15 mg q hs Reviewed/ordered labs: per routine annual check Discussed stressors and therapies to work on coping skills: reviewed stressors, coping skills; went into details about stressors or environmental factors affecting sleep - pt willing to work on techniques to aid in relaxation / sleep onset and maintenance Focus on ADL's: sleep hygiene, improving diet, incorporating appropriate exercise, as tolerated Maintain a Safe and structured environment, including restriction from dangerous items and behaviors - incorporation of safety plan, if indicated - appears low risk for self-harm at this time. Coordination of care - to obtain outside records, as necessary, for continued care of medical conditions Prognosis: good Billing: EST [id number], [id number] 2-3 mo or sooner prn Plan Of Treatment Pending Test Test Name Order Date X ray : Shoulder, right 10/15/2021 X ray : CHEST PA LATERAL 02/24/2022 X ray : CHEST PA LATERAL 04/27/2022 EKG 08/07/2024 MRI : Right shoulder w/o contrast 2021 Future Test Test Name Order Date Vitamin D, 25-Hydroxy *[facility]* 03/14/20 24 Erythropoietin (EPO), Serum *[facility]* Next Appt Details Provider Name:Sandra bob, 12/05/2024 01:00:00 PM, [id number] [employer] [place], [place], [id number], Provider Name:Blessing Betancourt , 12/13/2024 01:00:00 PM, [id number] [employer] [place], [place], [id number], Insurance Providers Payer Name Payer Address Payer Phone Subscriber Number Group Number Insured Name Patient Relationship to Insured Coverage Start Date Coverage End Date Medicare - S Part A [address] [place] [address] [id number] Levon Wang Self - patient is the insured [employer] [address] [address] [place] [phone] [id number] Levon Wang Self - patient is the insured [employer] [address] [place] [address] [phone] [id number] Levon Wang Self - patient is the insured Medical (General) History Medical History History ICD Code Alcohol abuse F10.10 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
--- NOTE | 2024-10-17 19:28 | ED_ITS ---
HPI - Male Genitourinary General Chief complaint: Urogenital-Male Stated complaint: urinating blood Time Seen by Provider: 10/17/24 18:50 History of Present Illness HPI Narrative: 44-year-old male with history of neurofibromatosis on 3 L nasal cannula at baseline presents to the emergency department for hematuria that started today. Patient states he noticed brown blood tinged urine that has progressively worsened throughout the day. He has never had this happen before. He reports mild dysuria. Denies urinary frequency, urgency, abdominal pain or flank pain. Denies history of kidney stones, denies seeing clots. Denies testicular or scrotal pain, penile discharge. Patient is on Plavix and Xarelto for previous vascular stenting. Related Data Allergies Allergy/AdvReac Type Severity Reaction Status Date / Time amoxicillin Allergy Intermediate Hives Verified 10/17/24 18:50 methocarbamol Allergy Unknown Itching Verified 10/17/24 18:50 Sulfa (Sulfonamide AdvReac Intermediate Vomiting Verified 10/17/24 18:50 Antibiotics) Review of Systems 2 Review of Systems: All systems reviewed & are unremarkable except as noted in HPI and below PMFSH Family History Family History Mother Patient's mother is in good health Father Patient's father is in good health Social History Social History Smoking status: Heavy tobacco smoker Second hand tobacco smoke exposure: No Alcohol intake: never Exam 2 Narrative: GENERAL: Well-appearing, well-nourished, and in no acute distress. HEAD: Normocephalic, atraumatic. EYES: EOMI. ENT: Nares clear, no rhinorrhea or epistaxis. Mucous membranes moist. NECK: Supple. CHEST: Clear to auscultation. No respiratory distress. On 3 L nasal cannula baseline, speaking in full sentences, satting 95% HEART: Regular rate and rhythm. No murmur heard. Normal peripheral pulses. ABDOMEN: Soft, nontender, nondistended, normal active bowel sounds. No rebound, guarding or rigidity. No CVA tenderness EXTREMITIES: Normal range of motion. No edema. SKIN: Warm, dry, no rash. NEURO: No focal deficits. Alert and oriented x3 Course Vital Signs Vital signs: Vital Signs Temperature 97.8 F 10/17/24 18:40 Pulse Rate 96 10/17/24 18:40 Respiratory Rate 20 10/17/24 18:40 Blood Pressure 121/79 10/17/24 18:40 Pulse Oximetry 95 10/17/24 18:40 Oxygen Delivery Nasal Cannula 10/17/24 18:40 Oxygen Flow Rate 3 10/17/24 18:40 Temperature 97.8 F 10/17/24 18:40 Pulse Rate 84 10/17/24 20:45 Respiratory Rate 20 10/17/24 20:45 Blood Pressure 120/87 10/17/24 20:45 Pulse Oximetry 100 10/17/24 20:45 Oxygen Delivery Nasal Cannula 10/17/24 18:40 Oxygen Flow Rate 3 10/17/24 18:40 MDM - Male Genitourinary MDM Narrative Medical decision making narrative: 44-year-old male presents to emergency department for hematuria that started today. Endorses associated mild dysuria. No abdominal pain or flank pain. No history of kidney stones. Denies scrotal or testicular pain. Denies clots in urine. Triage vitals are stable. Patient is afebrile and nontoxic appearing. Exam is notable for the above. Lab work shows no leukocytosis or anemia. Chemistries are unremarkable with a with a stable kidney function. Urinalysis with large amount of hematuria 1+ leuk esterase. Urine cultures ordered and pending. CT abdomen pelvis shows no obstructive uropathy. There is heterogeneous attenuation within the base of the bladder as well as within the prostate gland along the expected course of the prostatic urethra consistent with evidence of blood products. Patient updated on results. He is not retaining urine and his postvoid bladder scan is reassuring. I discussed findings with urologist, Dr. Tinoco, who advises patient is stable for outpatient follow-up and will likely need outpatient CT urogram and cystoscopy. Will also cover patient for UTI given reported dysuria and hematuria. This was relayed to the patient. He is traveling from [facility] and states he will follow-up with his PCP for a referral to local urologist. I discussed strict ED return precautions. He is agreeable with the plan verbalized understanding. Discharged in stable condition. Lab Data 10/17/24 19:14 10/17/24 19:14 Labs: Lab Results 06/10/17/24 10/17/24 Range/Units 19:14 19:30 21:53 WBC 8.2 (4.5-10.0) K/mm3 RBC 5.44 (4.6-6.20) M/mm3 Hgb 16.7 (14.0-18.0) g/dL Hct 48.9 (42.0-52.0) % MCV 89.9 (80-100) fl MCH 30.7 (26-34) pg MCHC 34.2 (32-36) g/dl RDW 13.5 (11.5-14.5) % Plt Count 300 (150-375) k/mm3 MPV 10.5 H (7.4-10.4) fl Immature Gran % (Auto) 0.5 (0-0.5) % Neut % (Auto) 67.2 (45.5-73.1) % Lymph % (Auto) 20.3 (18.3-44.2) % [place] % (Auto) 7.8 (2.6-8.5) % Eos % (Auto) 3.2 (0-4.4) % Baso % (Auto) 1.0 (0.2-1.2) % Lymph # (Auto) 1.66 (0.9-3.2) K/mm3 [place] # (Auto) 0.6 (0.1-0.6) K/mm3 Eos # (Auto) 0.3 (0-0.3) K/mm3 Baso # (Auto) 0.1 (0.0-0.1) K/mm3 Abs Immat Gran (auto) 0.04 H (0.00-0.031) K/mm3 Absolute Neuts (auto) 5.5 (1.3-6.7) K/mm3 Absolute Nucleated RBC 0.000 (0.0-0.012) K/mm3 Nucleated RBC % 0.0 (0.0-0.2) % PT 20.4 H (11.1-14.7) Seconds INR 1.8 APTT 38.4 H (22.3-36.8) Seconds Sodium 138 (137-145) mmol/L Potassium 4.4 (3.4-5.0) mmol/L Chloride 108 H (98-107) mmol/L Carbon Dioxide 19 L (22-30) mmol/L Anion Gap 11 (4-12) mmol/L BUN 17 (9-20) mg/dL Creatinine 1.15 (0.7-1.3) mg/dL Estim Creat Clear Calc 71 ml/min Estimated GFR > 60 (59 - ) Glucose 95 (65-110) mg/dL Calcium 9.4 (8.4-10.2) mg/dL Total Bilirubin 0.5 (0.2-1.3) mg/dL AST 25 (17-59) U/L ALT 17 (6-50) U/L Alkaline Phosphatase 81 (38-126) U/L Total Protein 7.5 (6.3-8.2) g/dL Albumin 4.5 (3.5-5.1) g/dL Urine Color Brown H (Yellow) Urine Appearance Turbid H (Clear) Urine pH 5.0 (5.0-9.0) Ur Specific [place] 1.024 (1.001-1.035) Urine Protein 2+ H (Negative) mg/dL Urine Glucose (UA) Negative (Negative) mg/dL Urine Ketones Negative (Negative) mg/dL Ur Blood (Man) 3+ H (Negative) Urine Nitrate Negative (Negative) Urine Bilirubin Negative (Negative) Urine Urobilinogen 0.2 (<2.0) mg/dL Add Ur Microanalysis Reviewed Leukocyte Esterase Rfl 1+ H (Negative) JENNIFER/UL Urine RBC >100 H (0-2) /hpf Urine WBC 0-5 (0-3) /hpf Ur Squamous Epith Cells Few (Few) /hpf Urine Bacteria None seen /hpf Urine Casts 0-2 Discharge Plan Discharge Clinical Impression: Urinary tract infection, Gross hematuria Patient Disposition: Home Condition: Stable Instructions: Antibiotic Form, Urinary Tract Infection in Men (ED), Hematuria (ED) Additional Instructions: Please take antibiotics as directed. Follow-up with primary care provider for referral to urologist in [facility]. He will need to see a urologist in likely have a CT urogram and cystoscopy performed for further evaluation. Return to the emergency department if you develop a fever, abdominal or flank pain, you are not emptying your bladder or developed large clots, or other concerning symptoms. Patient Language: Latvian Prescriptions: New cefdinir 300 mg capsule 300 mg PO Q12H Qty: 14 0RF Follow-up/Referrals: PHYSICIAN NOT ON STAFF,NONSTAFF [Primary Care Provider] -
[2024-10-17 19:36] LABS: Basophils Absolute Auto 0.1 K/mm3 (0.0-0.1); Eosinophils Absolute Auto 0.3 K/mm3 (0-0.3); Eosinophils Percent Auto 3.2 % (0-4.4); Hematocrit 48.9 % (42.0-52.0); Hemoglobin 16.7 g/dL (14.0-18.0); Immature Granulocyte Absolute 0.04 K/mm3 (0.00-0.031); Immature Granulocyte Percent A 0.5 % (0-0.5); Lymphocytes Absolute Auto 1.66 K/mm3 (0.9-3.2); Lymphocytes Percent Auto 20.3 % (18.3-44.2); Mean Corpuscular HGB Conc 34.2 g/dl (32-36); Mean Corpuscular Hemoglobin 30.7 pg (26-34); Mean Corpuscular Volume 89.9 fl (80-100); Mean Platelet Volume 10.5 fl (7.4-10.4); Monocytes Absolute Auto 0.6 K/mm3 (0.1-0.6); Monocytes Percent Auto 7.8 % (2.6-8.5); Neutrophils Absolute Auto 5.5 K/mm3 (1.3-6.7); Neutrophils Percent Auto 67.2 % (45.5-73.1); Platelet Count Result 300 k/mm3 (150-375); Red Blood Count 5.44 M/mm3 (4.6-6.20); Red Cell Distribution Width 13.5 % (11.5-14.5); White Blood Count 8.2 K/mm3 (4.5-10.0)
[2024-10-17 19:47] LABS: Alanine Aminotransferase 17 U/L (6-50); Albumin Level 4.5 g/dL (3.5-5.1); Alkaline Phosphatase 81 U/L (38-126); Anion Gap 11 mmol/L (4-12); Aspartate Amino Transferase 25 U/L (17-59); Bilirubin,Total 0.5 mg/dL (0.2-1.3); Blood Urea Nitrogen 17 mg/dL (9-20); Calcium 9.4 mg/dL (8.4-10.2); Carbon Dioxide 19 mmol/L (22-30); Chloride 108 mmol/L (98-107); Estimated CRCL calculation 71 ml/min; Estimated Glomerular Filt Rate > 60; Glucose 95 mg/dL (65-110); Potassium 4.4 mmol/L (3.4-5.0); Sodium 138 mmol/L (137-145); Total Protein 7.5 g/dL (6.3-8.2)
[2024-10-17 19:49] LABS: INR 1.8; Partial Thromboplastin Time 38.4 Seconds (22.3-36.8); Prothrombin Time 20.4 Seconds (11.1-14.7)
--- NOTE | 2024-10-17 20:28 | PC.NURSE ---
Pt. unable to urinate into urinal. STates he never has issues going at home. Bladder scan revealed 0mL in bladder.
[2024-10-17 20:45] VITALS: BP 120/87; PULSE 84; RESP 20; O2SAT 100
[2024-10-17] MEDS: SODIUM CHLORIDE 0.9% IV 1,000 ML 999 ML IV CONT (20:45)
[2024-10-17 22:22] LABS: Bacteria Urine None Seen /hpf; Need Manual Microscopic Reviewed; Non Pathogenic Casts 0-2; RBC Urine >100 /hpf (0-2); Squamous Epithelial Cell Urine Few /hpf (Few); WBC Urine 0-5 /hpf (0-3)
[2024-10-17 22:23] LABS: Add Urine Microscopic? YES; Appearance Urine Turbid (Clear); Bilirubin Urine Negative (Negative); Blood Urine 3+ (Negative); Glucose Urine UA Negative (Negative); Ketones Urine Negative (Negative); Leukocyte Esterase Ur 1+ LEU/UL (Negative); Nitrate Urine Negative (Negative); Protein Urine 2+ mg/dL (Negative); Specific Grav Ur 1.024 (1.001-1.035); Urobilinogen Urine 0.2 mg/dL (<2.0)
[2024-10-17 22:24] LABS: Color Urine Brown (Yellow)
[2024-10-17] MEDS: CEFDINIR 300 MG CAPSULE PO (23:14)
== END 2024-10-17 23:25 | disposition home or self-care (01) ==
PROVIDERS: Emergency Provider Physician Assistant
DX: N39.0 Urinary tract infection, site not specified (principal); R31.0 Gross hematuria; J44.9 Chronic obstructive pulmonary disease, unspecified; Q85.00 Neurofibromatosis, unspecified; Z99.81 Dependence on supplemental oxygen; Z79.02 Long term (current) use of antithrombotics/antiplatelets; Z79.01 Long term (current) use of anticoagulants; F17.200 Nicotine dependence, unspecified, uncomplicated
CPT/HCPCS: 36415; 74176; 80053; 81001; 85025; 85610; 85730; 87086; 96360; 99284; A9270; J7030